=== PATIENT | male | born 1965 | race Caucasian/White ===

== ENCOUNTER 2021-04-11 14:11 | Outpatient (REF) | payer OTHER, SELFPAY | END 2021-04-11 14:12 | disposition home or self-care (01) | LOC: HO.HMGCLDS 14:11 | PROVIDERS: Visit Provider Internal Medicine | DX: Z20.822 Contact with and (suspected) exposure to COVID-19 (principal) | CPT/HCPCS: C9803; U0003; U0005 ==

== ENCOUNTER 2022-08-02 09:30 | Outpatient (RCR) | payer OTHER, SELFPAY | END 2022-08-04 08:54 | disposition home or self-care (01) | LOC: HO.OT 09:30 | PROVIDERS: Visit Provider Plastic Surgery | DX: M65.332 Trigger finger, left middle finger (principal); M65.342 Trigger finger, left ring finger | CPT/HCPCS: 29130; 97110; 97140; 97165; 97760 ==

== ENCOUNTER 2023-02-28 09:00 | Outpatient (RCR) | payer OTHER, SELFPAY ==
--- NOTE | 2023-01-09 18:10 | MHC.PT.EP ---
[facility] [place] [facility] [place] [facility] [place] Office [address] [phone] F: [phone] F: [phone] F: [phone] F: [phone] Physical Therapy Plan of Care Date of Evaluation: Date of Surgery: N/A Diagnosis: cervical radiculopathy Assessment: Pt is a pleasant 57yo M who presents to PT with L neck pain after falling and landing on his left side. He presents to PT with current impairments in pain, decreased cervical ROM, soft tissue restrictions, and impaired posture. He is limited functionally by driving, stretching, head rotation, and sleeping. He is an excellent candidate for skilled PT in order to address current impairments to facilitate return to PLOF. He is recommended to be seen 2x/week for 4 weeks and will be reassessed at that time. Frequency and Duration: The patient will be seen 2x/week for 4 weeks Short Term Goals: Pt will be I with HEP to promote self management of symptoms Pt will demonstrate improvements in postural awareness throughout the day Skilled Nursing Goals: Pt will achieve full, cervical ROM all planes to assist with functional tasks such as rotation Pt will tolerate sitting while driving > 45 min with minimal to no discomfort Pt will demonstrate improvements in function as evidenced by statistically significant improvement in Neck Pain Disability Index Questionnaire Treatment Plan: Modalities to reduce pain, spasms and effusion. Manual therapy to restore motion and function. Therapeutic exercise to improve strength and flexibility. Neuromuscular re-education for posture and balance. Therapeutic activities to return to functional activities of daily living. Electronically signed by: Iza Donahue, PT, DPT Please sign and return to therapist. Thank you for your referral.
--- NOTE | 2023-06-25 11:12 | MHC.PT.DC ---
[facility] [place] Office [place] [facility] [place] Office [address] Guilherme Domínguez [address] [phone] F: [phone] F: [phone] F: [phone] F: [phone] Physical Therapy Discharge Report Diagnosis: cervical radiculopathy Date of Surgery: N/A Date of Evaluation: 01/08/23 Date of Discharge: 06/25/23 Treatments to Date: 14 Cancellations to Date: No Shows to Date: Discharge Status: Patient Elected to Stop Discharge Summary: Pt was seen for PT from 01/08/23-02/28/23. His last attended appointment was 02/28/23. He is being D/C from skilled PT as he has not attended or called to schedule in > 30 days. Pt current level of function unknown at this time Electronically signed by: Iza Donahue, PT, DPT Please sign and return to therapist. Thank you for your referral.
== END 2023-06-25 11:12 | disposition home or self-care (01) ==
LOC: HO.PT 09:00
PROVIDERS: PCP Internal Medicine; Visit Provider Nurse Practitioner Family
DX: M54.12 Radiculopathy, cervical region (principal)
CPT/HCPCS: 97033; 97035; 97110; 97140; 97162

== ENCOUNTER → 2025-04-14 12:08 | Outpatient (BNVA) | payer OTHER, SELFPAY | PROVIDERS: Visit Provider Physician Assistant Medical | DX: S16.1XXA Strain of muscle, fascia and tendon at neck level, initial encounter (principal); V53.0XXA Driver of pick-up truck or van injured in collision with car, pick-up truck or van in nontraffic accident, initial encounter | CPT/HCPCS: 99202 ==

== ENCOUNTER → 2025-04-16 11:33 | Outpatient (BNVA) | payer OTHER, SELFPAY | PROVIDERS: Visit Provider Physician Assistant Medical | DX: S16.1XXA Strain of muscle, fascia and tendon at neck level, initial encounter (principal); V53.0XXA Driver of pick-up truck or van injured in collision with car, pick-up truck or van in nontraffic accident, initial encounter | CPT/HCPCS: 99213 ==

== ENCOUNTER → 2025-04-23 10:51 | Outpatient (BNVA) | payer OTHER, SELFPAY | PROVIDERS: Visit Provider Physician Assistant Medical | DX: S16.1XXA Strain of muscle, fascia and tendon at neck level, initial encounter (principal); V53.0XXA Driver of pick-up truck or van injured in collision with car, pick-up truck or van in nontraffic accident, initial encounter; M50.30 Other cervical disc degeneration, unspecified cervical region | CPT/HCPCS: 99213 ==

== ENCOUNTER → 2025-05-13 10:26 | Outpatient (BNVA) | payer OTHER, SELFPAY | PROVIDERS: PCP Nurse Practitioner Family; Visit Provider Physician Assistant Medical | DX: S16.1XXA Strain of muscle, fascia and tendon at neck level, initial encounter (principal); V53.0XXA Driver of pick-up truck or van injured in collision with car, pick-up truck or van in nontraffic accident, initial encounter | CPT/HCPCS: 99213 ==